=== PATIENT | female | born 1995 | race Caucasian/White ===

== ENCOUNTER 2018-05-18 14:03 | Emergency (ER) | payer MEDICAID ==
[~2018-05-18] VITALS: Ht 170.2 cm; Wt 69.1 kg
[2018-05-18 14:20] VITALS: BP 115/84
--- NOTE | 2018-05-18 18:09 | NUR ---
NO ANSWER IN ER LOBBY
--- NOTE | 2018-05-18 18:20 | NUR ---
NO ANSWER IN ER LOBBY
== END 2018-05-18 18:20 | disposition left against medical advice (07) ==
LOC: MED 14:03
DX: R11.2 Nausea with vomiting, unspecified (principal); R19.7 Diarrhea, unspecified; Z53.21 Procedure and treatment not carried out due to patient leaving prior to being seen by health care provider
CPT/HCPCS: 81002; 81025